=== PATIENT | male | born 1970 ===

== ENCOUNTER 2017-05-31 09:48 | Outpatient (CLI) | payer BC ==
--- NOTE | 2017-05-31 14:34 | Cat Scan Report ---
CT scan without contrast: Hematuria. Transverse images are obtained from the lower chest to the ischium with coronal and sagittal 2-D reformatted images. The visualized lung bases are normal. The abdominal organs are unremarkable except for a 12 mm discrete hypodensity in the lateral right lobe of the liver. The right renal contour, size, and pattern is unremarkable. In the anterior third of the left kidney there is an inhomogeneous area of hypoechogenicity measuring approximately 2.6 cm. The kidney otherwise appears unremarkable. The ureters are nondilated. There is no evidence of urinary calculus disease. The unopacified bladder has a focal thickening of the left superolateral bladder wall. The depth is approximately 1.6 cm and the length 4.5 cm. Small air bubbles located in the superior bladder. There is diverticulosis of the sigmoid colon. The unopacified bowel mesentery is not otherwise remarkable. Bilateral fat-containing inguinal hernias are present. There is no obvious adenopathy although this evaluation is limited in the absence of IV contrast. The osseous structures appear generally unremarkable. Impressions: 1. Indeterminate left renal mass. 2. Focal bladder wall thickening suspicious for mass. 3. Unexplained bladder gas. Has this patient been recently instrumented? Recommendation: Repeat CT with IV contrast for improved evaluation.
== END 2017-05-31 09:49 | disposition home or self-care (01) ==
LOC: SPVIMAG 09:48
PROVIDERS: ATTEND Urology
DX: K57.30 Diverticulosis of large intestine without perforation or abscess without bleeding (principal); K40.90 Unilateral inguinal hernia, without obstruction or gangrene, not specified as recurrent; N28.89 Other specified disorders of kidney and ureter; R31.29 Other microscopic hematuria
CPT/HCPCS: 74176